=== PATIENT | female | born 1990 | race Caucasian/White ===

== ENCOUNTER 2016-11-02 10:09 | Inpatient (IN) | payer BC, MEDICAID ==
[2016-11-02 13:04] LABS: Hematocrit 34 % (35-47); Hemoglobin 11.2 g/dl (12.0-16.0); Mean Corpuscular HGB Conc 33 g/dl (31-36); Mean Corpuscular Hemoglobin 29 pg (27-31); Mean Corpuscular Volume 88 fL (80-97); Mean Platelet Volume 10 um3 (7.4-10.4); Red Blood Count 3.89 10^6/ul (4.0-5.4); Red Cell Distribution Width 14 % (10.5-15); White Blood Count 13.8 10^3/ul (3.5-10.8)
[2016-11-02] MEDS ORDERED: Oxytocin in LR* 20 UNITS/1,000 ML BAG IVPB ONE (16:46)
[2016-11-02] MEDS ORDERED: Misoprostol TAB* 200 MCG PR ONE (17:26)
[2016-11-02] MEDS ORDERED: Acetaminophen TAB* 325 MG PO PRN (17:26)
[2016-11-02] MEDS ORDERED: Glycerin ADULT SUPP PR PRN (17:26)
[2016-11-02] MEDS: Ibuprofen TAB* 600 MG PO PRN (18:29)
[2016-11-02] MEDS: Witch Hazel PAD* JAR TOPICAL PRN (18:30)
[2016-11-02] MEDS: Dibucaine 1% 28.35 GM TUBE PR PRN (18:30)
[2016-11-03] MEDS: Ibuprofen TAB* 600 MG PO PRN ×4 (02:32→20:36)
[2016-11-03 07:08] LABS: Hematocrit 28 % (35-47); Hemoglobin 9.4 g/dl (12.0-16.0); Mean Corpuscular HGB Conc 34 g/dl (31-36); Mean Corpuscular Hemoglobin 30 pg (27-31); Mean Corpuscular Volume 88 fL (80-97); Mean Platelet Volume 10 um3 (7.4-10.4); Red Blood Count 3.15 10^6/ul (4.0-5.4); Red Cell Distribution Width 14 % (10.5-15); White Blood Count 17.7 10^3/ul (3.5-10.8)
[2016-11-03] MEDS: Ferrous Gluconate TAB* 324 MG TAB PO SCH ×2 (08:45→20:36)
[2016-11-03] MEDS: Docusate CAP* 100 MG PO SCH ×4 (08:45→20:36)
[2016-11-04] MEDS: Ibuprofen TAB* 600 MG PO PRN ×2 (02:37→07:20)
[2016-11-04] MEDS: Witch Hazel PAD* JAR TOPICAL PRN (02:38)
[2016-11-04] MEDS: Dibucaine 1% 28.35 GM TUBE PR PRN (02:38)
[2016-11-04] MEDS: Docusate CAP* 100 MG PO SCH (07:21)
[2016-11-04] MEDS: Ferrous Gluconate TAB* 324 MG TAB PO SCH (07:21)
[2016-11-04 07:27] VITALS: BP 119/73
[2016-11-04] MEDS: Simethicone TAB* 80 MG TAB.CHEW PO SCH ×2 (07:31→08:15)
== END 2016-11-04 11:11 | disposition home or self-care (01) | DRG 560 ==
LOC: MCHOBOUT 10:09 → MCHOB 12:08
PROVIDERS: ADMIT Obstetrics & Gynecology; ATTEND Obstetrics & Gynecology
PROC: 10907ZC Drainage of Amniotic Fluid, Therapeutic from Products of Conception, Via Natural or Artificial Opening (ICD-10-PCS; principal; 2016-11-02)
PROC: 10E0XZZ Delivery of Products of Conception, External Approach (ICD-10-PCS; 2016-11-02)
PROC: 4A1HX4Z Monitoring of Products of Conception, Cardiac Electrical Activity, External Approach (ICD-10-PCS; 2016-11-02)
PROC: 0KQM0ZZ Repair Perineum Muscle, Open Approach (ICD-10-PCS; 2016-11-02)
DX: O48.0 Post-term pregnancy (principal); O90.81 Anemia of the puerperium; O34.211 Maternal care for low transverse scar from previous cesarean delivery; Z3A.40 40 weeks gestation of pregnancy; Z37.0 Single live birth; O70.1 Second degree perineal laceration during delivery; O69.1XX0 Labor and delivery complicated by cord around neck, with compression, not applicable or unspecified
CPT/HCPCS: 36415; 85025; 86850; 86900; 86901; A9270-GY

== ENCOUNTER 2018-04-02 19:15 | Emergency (ER) | payer OTHER ==
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
--- NOTE | 2018-04-02 20:21 | RAD ---
INDICATION: Right hand injury. TECHNIQUE: 3 views of the right hand were obtained. FINDINGS: There is soft tissue swelling present dorsal to the metacarpal bones. The bones are normal alignment. No fracture is seen. Joint spaces appear maintained. IMPRESSION: SOFT TISSUE SWELLING, NO FRACTURE IS SEEN.
[2018-04-02 20:40] VITALS: BP 112/72
== END 2018-04-02 20:39 | disposition home or self-care (01) ==
LOC: ED 19:15
DX: S60.221A Contusion of right hand, initial encounter (principal); W22.8XXA Striking against or struck by other objects, initial encounter; Y92.9 Unspecified place or not applicable; Z87.891 Personal history of nicotine dependence
CPT/HCPCS: 99282

== ENCOUNTER 2018-06-12 08:03 | Emergency (ER) | payer MEDICAID, OTHER ==
[2018-06-12 08:27] VITALS: BP 111/75
--- NOTE | 2018-06-12 08:45 | UC ---
Throat Pain/Nasal James HPI - HPI Summary HPI Summary: 28 yo female presents with right sinus pain and sore throat. States that for the last 2-3 days she has woken up and her right eye will be swollen with some mild redness. Also has some sinus congestion and post nasal drip with a sore throat. Has been taking sudafed with no relief. Denies fever, chills, cough, SOB , chest pain, rash. - History of Current Complaint Chief Complaint: UCRespiratory Stated Complaint: SINUS CONGESTION, AND EYE IRRITATION Time Seen by Provider: 06/12/18 08:45 Hx Obtained From: Patient Hx Last Menstrual Period: 2 weeks ago Onset/Duration: Gradual Onset Severity: Mild Pain Intensity: 4 Pain Scale Used: 0-10 Numeric - Allergies/Home Medications Allergies/Adverse Reactions: Allergies Allergy/AdvReac Type Severity Reaction Status Date / Time No Known Allergies Allergy Verified 06/12/18 08:27 Home Medications: Home Medications Guaifen/Phenyleph/Acetaminophn [Sudafed PE Jeyvyapd-Nufu-Pbesh] 1 each PO [History] Multivitamin [Multivitamins] 1 cap PO 06/12/18 [History] Naproxen Sodium [Aleve] 220 mg PO 06/12/18 [History] PMH/Surg Hx/FS Hx/Imm Hx - Additional Past Medical History Additional PMH: None - Surgical History Surgical History: Yes Surgery Procedure, Year, and Place: BRAIN SURGERY 2000 (Cerebellar TUMOR REMOVED ) - Family History Known Family History: Positive: Unknown - Social History Occupation: Employed Full-time Lives: With Family Alcohol Use: Occasionally Substance Use Type: None Smoking Status (MU): Former Smoker - Immunization History Most Recent Influenza Vaccination: 07/13/16 Most Recent Tetanus Shot: 07/28/16 Most Recent Pneumonia Vaccination: unsure Review of Systems Constitutional: Negative Skin: Negative Eyes: Negative ENT: Sinus Congestion, Sinus Pain/Tenderness Respiratory: Negative Cardiovascular: Negative Gastrointestinal: Negative Neurovascular: Negative Neurological: Negative Psychological: Negative All Other Systems Reviewed And Are Negative: Yes Physical Exam - Summary Physical Exam Summary: GENERAL: NAD. WDWN. No pain distress. SKIN: No rashes, sores, lesions, or open wounds. HEENT: Head: AT/NC Eyes: EOM intact. PERRLA. Conjunctiva clear without inflammation or discharge. Ears: Hearing grossly normal. TMs intact, no bulging, erythema, or edema. Nose: Nasal mucosa mildly swollen and erythematous with yellow discharge. TTP right maxillary sinus. Throat: Posterior oropharynx without exudates, erythema, or tonsillar enlargement. Uvula midline. NECK: Supple. Nontender. No lymphadenopathy. CHEST: CTAB. No r/r/w. No accessory muscle use. Breathing comfortably and in no distress. CV: RRR. Without m/r/g. Pulses intact. NEURO: Alert. PSYCH: Age appropriate behavior. Triage Information Reviewed: Yes Vital Signs: Initial Vital Signs Temp 97.4 F 06/12/18 08:22 Pulse 66 06/12/18 08:22 Resp 18 06/12/18 08:22 BP 111/75 06/12/18 08:22 Pulse Ox 100 06/12/18 08:22 Vital Signs Reviewed: Yes Throat Pain/Nasal Course/Dx - Course Course Of Treatment: Suspect maxillary sinusitis - Differential Dx/Diagnosis Provider Diagnoses: Sinusitis Discharge - Sign-Out/Discharge Documenting (check all that apply): Patient Departure All imaging exams completed and their final reports reviewed: No Studies - Discharge Plan Condition: Stable Disposition: HOME Prescriptions: Amoxicillin/Clavulanate TAB* [Augmentin TAB 875*] 875 mg PO BID #14 tab Patient Education Materials: Sinusitis (ED) Referrals: Shima Tobin PA [Primary Care Provider] - Additional Instructions: If you develop a fever, shortness of breath, chest pain, new or worsening symptoms - please call your PCP or go to the ED. - Billing Disposition and Condition Condition: STABLE Disposition: Home - Attestation Statements Provider Attestation: Per institutional requirements, I have reviewed the chart, however, I was not consulted specifically or made aware of this patient by the midlevel provider. I did not personally evaluate, interact with , or disposition this patient.
== END 2018-06-12 09:11 | disposition home or self-care (01) ==
LOC: UCEAST 08:03
CPT/HCPCS: 99212; G0463

== ENCOUNTER 2018-07-03 15:52 | Emergency (ER) | payer MEDICAID, OTHER ==
[2018-07-03] MEDS ORDERED: Ibuprofen TAB* 600 MG PO ONE (16:03)
[2018-07-03 16:04] VITALS: BP 118/72
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
[2018-07-03] MEDS ORDERED: Silver Sulfadiazine 1%* 20 GM TOPICAL ONE (17:03)
--- OUTSIDE RECORDS SUMMARY | 2018-07-03 21:41 | XMS REPORT ---
:1990 External Reference #:[id number] Author Organization [facility] Address [address] [place] [address] Phone [phone] Care Team Providers Name Role Phone HCP given Primary Care Physician Unavailable Payers Type Date Identification Numbers Payment Provider Subscriber Medicaid Effective: Policy Number: [id number] Medicaid Lorettamiguel Garibay 2018 PayID: [id number] [address] [place] [address] Problems Description No Information Family History Date Family Member(s) Problem(s) Comments General Stomach Cancer Great grandmother General Emotional Problems Throughout family: grandmother schizophrenic Mother Alcoholism Mother Asthma Mother Bleeding Tendancy Mother High Blood Pressure Mother Arthritis Mother Lupus Mother Colitis Siblings 4 Social History Type Date Description Comments Education Ged Education Highest Level Completed College Marital Status Single Lives With Children x 3 Diet Healthy, Well Balanced 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 No history of abuse ETOH Use Rarely consumes alcohol Recreational Drug Use Denies Drug Use Daily Caffeine Consumes on average 4 cups of coffee per day Enjoy Exercising Enjoys exercising Exercise Type/Frequency Exercises rarely Sun Exposure Uses sunscreen Seat Belt/Car Seat always uses seat belt Guns in Home No Smoke Alarms Yes smoke alarm Currently Active Patient is currently sexually active Age 1st [place] 17 Years Old # Partners in a Lifetime Partners 1-5 Allergies, Adverse Reactions, Alerts Date Description Reaction Status Severity Comments 02/28/2018 NKDA active Medications Medication Date Status Form Strength Qnty SIG Indications Ordering Provider Sumatriptan 06/19/ Active Tablets 25mg 8tabs 1 as needed G43.001 [place], Succinate 2017 migraine january, repeat after 2 M.D. hours if [place] not relieved Sprintec 28 06/19/ Active Tablets 0.25-35mg 30tab 1 pill per N94.6 Bisi [place] [place] each for M.D. contraception Magnesium 06/18/ Active Tablets 500mg 1 by mouth Unknown 2017 daily Feverfew 06/18/ Active Capsules 150mg 1 daily Unknown 2017 Multivitamin 02/27/ Active Tablets 1 by mouth Unknown Adult 2018 every day L-Theanine 02/27/ Active Capsules 1 qd Unknown 2017 Saman-E 06/17/ Hx Tablets 400mg 1 Tablet Daily Unknown 2017 - 2017 Medications Administered in Office Medication Date Status Form Strength Qnty SIG Indications Ordering Provider TB Intradermal Administered Injection Shima Test 018 Crista, P.A. Vital Signs Date Vital Result Comment 06/21/2018 BP Systolic 98 mmHg BP Diastolic 62 mmHg Weight 143.00 lb with shoes 06/19/2018 BP Systolic 110 mmHg BP Diastolic 76 mmHg Body Temperature 97.8 F Weight 143.00 lb 04/19/2018 BP Systolic 104 mmHg BP Diastolic 74 mmHg 03/21/2018 BP Systolic 100 mmHg BP Diastolic 68 mmHg Weight 146.00 lb with sandals 02/28/2018 BP Systolic 106 mmHg BP Diastolic 64 mmHg Height 63.75 inches 5'3.75" Weight 149.00 lb BMI (Body Mass Index) 25.8 kg/m2 Results Test Date Test Result H/L Range Note Xray 06/21/2018 X-Ray, Cervical <pending> Spine Min 4 Views, Ap, Lat, & Both Oblique Inr/Protime 03/21/2018 Inr 0.87 0.77-1.02 1 Laboratory test finding 03/21/2018 Anti Nuclear 0.2 U 1, 2 Antibody CBC Auto Diff 03/14/2018 White Blood Count 4.2 10^3/uL 3.5-10.8 Red Blood Count 4.18 10^6/uL 4.00-5.40 Hemoglobin 13.7 g/dL 12.0-16.0 Hematocrit 39 % 35-47 Mean Corpuscular Volume 94 fL 80-97 Mean Corpuscular Hemoglobin 33 pg High 27-31 Mean Corpuscular HGB Conc 35 g/dL 31-36 Red Cell Distribution Width 12 % 10.5-15 Platelet Count 227 10^3/uL 150-450 Mean Platelet Volume 7.9 um3 7.4-10.4 Abs Neutrophils 2.2 10^3/uL 1.5-7.7 Abs Lymphocytes 1.4 10^3/uL 1.0-4.8 Abs Monocytes 0.4 10^3/uL 0-0.8 Abs Eosinophils 0.2 10^3/uL 0-0.6 Abs Basophils 0 10^3/uL 0-0.2 Abs Nucleated RBC 0 10^3/uL Granulocyte % 51.9 % 38-83 Lymphocyte % 33.9 % 25-47 Monocyte % 9.4 % High 0-7 Eosinophil % 4.2 % 0-6 Basophil % 0.6 % 0-2 Nucleated Red Blood Cells % 0.1 Laboratory test finding 03/14/2018 TSH (Thyroid Stim Horm) 0.88 mcIU/mL 0.34-5.60 Comp Metabolic Panel 03/14/2018 Sodium 139 mmol/L 135-145 Potassium 4.6 mmol/L 3.5-5.0 Chloride 107 mmol/L 101-111 Co2 Carbon Dioxide 26 mmol/L 22-32 Anion Gap 6 mmol/L 2-11 Glucose 81 mg/dL 70-100 Blood Urea Nitrogen 12 mg/dL 6-24 Creatinine 0.89 mg/dL 0.51-0.95 BUN/Creatinine Ratio 13.5 8-20 Calcium 9.8 mg/dL 8.6-10.3 Total Protein 6.4 g/dL 6.4-8.9 Albumin 4.2 g/dL 3.2-5.2 Globulin 2.2 g/dL 2-4 Albumin/Globulin Ratio 1.9 1-3 Total Bilirubin 0.40 mg/dL 0.2-1.0 Alkaline Phosphatase 48 U/L 34-104 Alt 10 U/L 7-52 Ast 12 U/L Low 13-39 Egfr Non- 77.3 >60 Egfr 99.4 >60 3 1 PT NOT FASTING FOR VITK AND WILL HAVE VITK AND VITC DONE AT A LATER TIME No results of Vit K and Vit C in [facility] [place]. SL 2 REFERENCE VALUE <=1.0 (Negative) Test Performed by: [facility] - [address] [address] Because ethnic data is not always readily available, this report includes an eGFR for both -Americans and non- Americans. The National Kidney Disease Education Program (NKDEP) does not endorse the use of the MDRD equation for patients that are not between the ages of 18 and 70, are , have extremes of body size, muscle mass, or nutritional status, or are non- or non-. According to the National Kidney Foundation, irrespective of diagnosis, the stage of the disease is based on the level of kidney function: Stage Description GFR(mL/min/1.73 m(2)) 1 Kidney damage with normal or decreased GFR 90 2 Kidney damage with mild decrease in GFR 60-89 3 Moderate decrease in GFR 30-59 4 Severe decrease in GFR 15-29 5 Kidney failure <15 (or dialysis) Procedures Date CPT Code Description Status 06/21/2018 13405 Omt 3 To 4 Body Regions Involved Completed 06/21/2018 19633 X-Ray, C-Spine Complete, Min 4 Completed 09/26/2016 Mammogram Completed 09/26/2009 Colonoscopy Completed Encounters Type Date Location Provider CPT E/M Dx Office Visit 06/21/2018 3:45p Main Office Renny Bose D.O. 80287 M99.08 M99.00 M99.02 M99.01 S16.1xxS Z86.011 G43.001 M41.9 M41.9 G43.001 Office Visit 06/19/2018 3:20p Main Office Shima Tobin, P.A. 77524 G43.001 N94.6 R19.7 Z86.011 G43.821 Office Visit 04/19/2018 2:00p [place] [address] Z02.89 Office Visit 03/21/2018 8:40a Main Office Shima Tobin, P.A. 25049 F43.23 D69.2 Z02.89 Z11.1 Office Visit 02/28/2018 9:40a Main Office Shima Tobin, P.A. 43901 F43.23 R10.9 S16.1xxA M41.9 G43.009 Plan of Care No Information Available
--- OUTSIDE RECORDS SUMMARY | 2018-07-03 21:41 | XMS REPORT ---
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 contraception Magnesium [...] TB Intradermal Administered Injection Shima Test 018 [place], P.A. Vital Signs Date Vital Result Comment [...] Test Date Test Result H/L Range Note Inr/Protime 03/21/2018 Inr 0.87 0.77-1.02 1 Laboratory [...] of Vit K and Vit C in [facility] [place]. SL 2 REFERENCE VALUE <=1.0 (Negative) Test Performed by: [facility] - [address] [address] Because ethnic data is not always [...] dialysis) Procedures Date CPT Code Description Status 09/26/2016 Mammogram Completed 09/26/2009 Colonoscopy Completed Encounters Type Date Location Provider CPT E/M Dx Office Visit 06/19/2018 3:20p Main Office Shima Tobin, P.A. 19077 G43.001 N94.6 R19.7 Z86.011 G43.821 Office Visit 04/19/2018 2:00p [place] [address] Z02.89 Office Visit 03/21/2018 8:40a Main Office Shima Tobin, P.A. 33205 F43.23 D69.2 Z02.89 Z11.1 Office Visit 02/28/2018 9:40a Main Office Shima Tobin, P.A. 38719 F43.23 R10.9 S16.1xxA M41.9 G43.009 Plan of Care 06/19/2018 - Shima Tobin, P.A.G43.001 Migraine w/o aura, not intractable, with status migrainosusNew Medication:Sumatriptan Succinate 25 mgComments:pt previously referred to for consult of HAs in pt w PMH of benign brain tumorFollow up:return if not improving call Neurology!!!!N94.6 Dysmenorrhea, unspecifiedNew Medication:Sprintec 28 0.25-35 mg-mcgFollow up:Start on HvegdbS96.7 Diarrhea, unspecifiedComments:associated with menses as per pt, that thinks will taper off now into second day of period.discussedpossibly [facility] will help this as wellZ86.011 Personal history of benign neoplasm of the knbqdO58.821 Menstrual migraine, not intractable, with status migrainosus
--- OUTSIDE RECORDS SUMMARY | 2018-07-03 21:41 | XMS REPORT ---
:1990 External Reference #:[id number] Author Organization [facility] Address [address] [place] [address] Phone [phone] Care Team Providers Name Role Phone HCP given Primary Care Physician Unavailable Payers Type Date Identification Numbers Payment Provider Subscriber Medicaid Effective: Policy Number: [id number] Medicaid Lorettamiguel Garibay 2018 PayID: [id number] [address] [place] [address] Problems Description No Information Family History Date [...] x 3 Diet Healthy, Well Balanced Occupation Dentist Attendant Abuse No history of abuse ETOH Use [...] Patient is currently sexually active Age [address]st [place] 17 Years Old # Partners in a [...] 30tab 1 pill per N94.6 Bisi 2018 -[facility] [place] same each for M.D. contraception Magnesium 06/18/ Active Tablets 500mg 1 by mouth Unknown 2017 daily Feverfew 06/18/ Active Capsules 150mg 1 daily Unknown 2017 Saman-E 06/17/ Active Tablets 400mg 1 Tablet Daily Unknown 2017 Multivitamin 02/27/ Active Tablets 1 by mouth Unknown Adult 2018 every day L-Theanine 02/27/ Active Capsules 1 qd Unknown 2017 Medications Administered in Office Medication Date Status Form Strength Qnty SIG Indications Ordering Provider TB Intradermal Administered Injection Shima Test 018 Trimble, P.A. Vital Signs Date Vital Result Comment 06/19/2018 BP Systolic 110 mmHg BP Diastolic [...] of Vit K and Vit C in [facility] lab site. SL 2 REFERENCE VALUE <=1.0 (Negative) Test Performed by: [facility] - [address] [address] 3 Because ethnic data is not always [...] 06/19/2018 3:20p Main Office Shima Tobin, P.A. 15622 G43.001 N94.6 R19.7 Office Visit 04/19/2018 2:00p [place] [address] Z02.89 Office Visit 03/21/2018 8:40a Main Office Shima Tobin, P.A. 29366 F43.23 D69.2 Z02.89 Z11.1 Office Visit 02/28/2018 9:40a Main Office Shima Tobin, P.A. 87891 F43.23 R10.9 S16.1xxA M41.9 G43.009 Plan of Care Future Appointment(s):06/21/2018 3:45 pm - Renny Bose D.O. at Main Ffzjff0306/19/2018 - Shima Tobin, P.A.G43.001 Migraine w/o aura, not intractable , with status migrainosusNew Medication:Sumatriptan Succinate 25 mgComments:pt previously referred to for consult of HAs in pt w PMH of benign brain tumorFollow up:return if not improving call Neurology!!!!N94.6 Dysmenorrhea, unspecifiedNew Medication:Sprintec 28 0.25-35 mg-mcgFollow up:Start on XamszhV74.7 Diarrhea, unspecifiedComments:associated with menses as per pt, that thinks will taper off now into second day of period.discussedpossibly theOCP will help this as well
== END 2018-07-03 18:00 | disposition home or self-care (01) ==
LOC: UCEAST 15:52
DX: T23.202A Burn of second degree of left hand, unspecified site, initial encounter (principal); T23.272A Burn of second degree of left wrist, initial encounter; T24.202A Burn of second degree of unspecified site of left lower limb, except ankle and foot, initial encounter; T24.201A Burn of second degree of unspecified site of right lower limb, except ankle and foot, initial encounter; T31.0 Burns involving less than 10% of body surface; X10.2XXA Contact with fats and cooking oils, initial encounter; Y93.G3 Activity, cooking and baking; Y92.000 Kitchen of unspecified non-institutional (private) residence as the place of occurrence of the external cause; Z87.891 Personal history of nicotine dependence
CPT/HCPCS: 16020; 99212; A9270-GY; G0463

== ENCOUNTER 2019-10-22 12:55 | Emergency (ER) | payer OTHER ==
--- OUTSIDE RECORDS SUMMARY | 2019-10-22 13:00 | XMS REPORT | Continuity of Care Document ---
:1990 External Reference #:[id number] Author Name Tung Cole N.P. 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 Problems Description No Information Available Social History Type Date Description Comments Sex Unknown Tobacco Use Start: Unknown Never Smoked Cigarettes Smoking Status Reviewed: 08/28/19 Never Smoked Cigarettes ETOH Use Denies alcohol use mild previous alcohol intake Tobacco Use Start: Unknown Patient has never smoked Recreational Drug Use Never Used Drugs Exercise Type/Frequency Does not exercise Allergies, Adverse Reactions, Alerts Description No Known Drug Allergies Medications Active Medications SIG Qnty Indications Ordering Provider Date Citalopram Hydrobromide Shima Tobin PA 20mg Tablets History Medications Sumatriptan take one tablet 9tabs Karol Rivas, 05/01/2019 - Succinate at first sign of PA 08/27/2019 25mg headache Tablets Rizatriptan dissolve one 9tabs G43.009 Karol Rivas, 04/24/2019 - Benzoate tablet on tongue PA 08/27/2019 10mg at first sign of Tablets Dispers migraine may repeat in 2 hours if necessary Immunizations Description No Information Available Vital Signs Date Vital Result Comment 08/28/2019 9:43am Height 63.5 inches 5'3.50" Weight 141.00 lb Heart Rate 81 /min BP Systolic 110 mmHg BP Diastolic 78 mmHg BMI (Body Mass Index) 24.6 kg/m2 04/24/2019 4:06pm Height 63.5 inches 5'3.50" Weight 138.00 lb Heart Rate 67 /min BP Systolic 122 mmHg BP Diastolic 78 mmHg O2 % BldC Oximetry 98 % BMI (Body Mass Index) 24.1 kg/m2 Results Test Acquired Date Facility Test Result H/L Range Note Laboratory test 03/31/2019 [facility] Vitamin B12 229 pg/mL Normal 180-[address] [place] [address] [phone] CBC Auto Diff 03/31/2019 [facility] White Blood 3.9 10^3/uL Normal 3.5-10.[address] [place] [address] [phone] Red Blood Count 4.39 10^6/uL Normal 3.70-4.87 Hemoglobin 13.9 g/dL Normal 12.0-16.0 Hematocrit 41 % Normal 35-47 Mean Corpuscular Volume 93 fL Normal 80-97 Mean Corpuscular Hemoglobin 32 pg High 27-31 Mean Corpuscular HGB Conc 34 g/dL Normal 31-36 Red Cell Distribution Width 13 % Normal 10-15 Platelet Count 239 10^3/uL Normal 150-450 Mean Platelet Volume 8.2 fL Normal 7.4-10.4 Abs Neutrophils 1.6 10^3/uL Normal 1.5-7.7 Abs Lymphocytes 1.5 10^3/uL Normal 1.0-4.8 Abs Monocytes 0.5 10^3/uL Normal 0-0.8 Abs Eosinophils 0.2 10^3/uL Normal 0-0.6 Abs Basophils 0.1 10^3/uL Normal 0-0.2 Abs Nucleated RBC 0.0 10^3/uL Granulocyte % 42.2 % Lymphocyte % 38.2 % Monocyte % 11.7 % Eosinophil % 5.5 % Basophil % 2.4 % Nucleated Red Blood Cells % 0.1 Laboratory test 03/31/2019 [facility] Vitamin D 18.8 ng/mL Low 20-[address]) [place] [address] [phone] CRP High Sensitivity 0.35 mg/L <2.00 Iron (Fe) 99 g/dL Normal 50-212 Ferritin 13.6 ng/mL Normal 11-307 Comp Metabolic 03/31/2019 [facility] Sodium 139 mmol/L Normal 135-[address] [place] [address] [phone] Potassium 4.4 mmol/L Normal 3.5-5.0 Chloride 110 mmol/L Normal 101-111 Co2 Carbon Dioxide 25 mmol/L Normal 22-32 Anion Gap 4 mmol/L Normal 2-11 Glucose 87 mg/dL Normal 70-100 Blood Urea Nitrogen 7 mg/dL Normal 6-24 Creatinine 0.78 mg/dL Normal 0.51-0.95 BUN/Creatinine Ratio 9.0 Normal 8-20 Calcium 9.5 mg/dL Normal 8.6-10.3 Total Protein 6.3 g/dL Low 6.4-8.9 Albumin 4.3 g/dL Normal 3.2-5.2 Globulin 2.0 g/dL Normal 2-4 Albumin/Globulin Ratio 2.2 Normal 1-3 Total Bilirubin 0.50 mg/dL Normal 0.2-1.0 Alkaline Phosphatase 34 U/L Normal 34-104 Alt 19 U/L Normal 7-52 Ast 18 U/L Normal 13-39 Egfr Non- 88.6 >60 Egfr 107.2 >60 3 1 Normal Range 180 to 914 Indeterminate Range 145 to 180 Deficient Range <145 2 Total 25-Hydroxyvitamin D2 and D3 (25-OH-VitD) <10 ng/mL (severe deficiency) 10-19 ng/mL (mild to moderate deficiency) 20-50 ng/mL (optimum levels) 51-80 ng/mL (increased risk of hypercalciuria) >80 ng/mL (toxicity possible) 3 Because ethnic data is not always [...] 5 Kidney failure <15 (or dialysis) Procedures Description No Information Available Medical Devices Description No Information Available Encounters Type Date Location Provider Dx Diagnosis Office Visit 04/24/2019 [facility] Karol G43.009 Migraine w/o aura, 4:00p [facility] ROSEANNE Rivas not intractable, w/o status migrainosus R53.83 Other fatigue K58.0 Irritable bowel syndrome with diarrhea F43.20 Adjustment disorder, unspecified E55.9 Vitamin D deficiency, unspecified Office Visit 03/08/2019 [facility] Karol Evelyn, G43.009 Migraine w/o aura, 8:30a [facility] not intractable, Clinic of w/o status Jd Edwards Consultant migrainosus R53.83 Other fatigue K58.0 Irritable bowel syndrome with diarrhea F43.20 Adjustment disorder, unspecified Assessments Date Code Description Provider 08/28/2019 G43.009 Migraine without aura, not intractable, Tung Cole, N.P. without status migra 08/28/2019 R53.83 Other fatigue Tung Cole N.P. 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20 Adjustment disorder, unspecified Karol Rivas PA Plan of Treatment Future Appointment(s):10/11/2019 9:00 am - Tung Cole N.P. at [facility]09/10/2019 4:00 pm - ROSEANNE Owen at [facility]08/28/2019 - Tung Cole, N.P.G43.009 Migraine without aura, not intractable, without status migraNew Xrays:Mra Head W/O, Ordered: 12/12MRI Brain W/Wo, Ordered: 08/28/19Follow up:6-8 weeksRecommendations: Riboflavin (vitamin b-2) 400mg daily Headache mlpukwmhM02.83 Other jlobdgvL32.2 Neoplasm of uncertain behavior of brain, unspecifiedRecommendations :[facility] Functional Status Description No Information Available Mental Status Description No Information Available Referrals Description No Information Available
[2019-10-22 13:08] VITALS: BP 125/83
--- NOTE | 2019-10-22 13:11 | UC ---
FLU HPI - HPI Summary HPI Summary: 29 yo female presents with flu-like symptoms. She tells me that she has children and co-workers with the flu. For the last 4 days she has felt chills, dry cough, sinus congestion, fatigue, and some nausea. She has been taking tylenol OTC with little relief. Today she feels improved. 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 Denies rash, SOB, abdominal pain, vomiting, diarrhea. - History of Current Complaint Chief Complaint: UCGeneralIllness Stated Complaint: FLU SYMPTOMS Time Seen by Provider: 10/22/19 13:10 Hx Obtained From: Patient Hx Last Menstrual Period: 09/26/19 Onset/Duration: Sudden Onset Severity Currently: Moderate Severity Initially: Moderate Pain Intensity: 7 Pain Scale Used: 0-10 Numeric - Allergy/Home Medications Allergies/Adverse Reactions: Allergies Allergy/AdvReac Type Severity Reaction Status Date / Time No Known Allergies Allergy Verified 10/22/19 13:08 Home Medications: Home Medications Acetaminophen [Mapap] 1,000 mg PO ONCE PRN 10/22/19 [History Confirmed 10/22/19] Citalopram Hydrobromide [Citalopram HBr] 1 tab PO DAILY 10/22/19 [History Confirmed 10/22/19] PMH/Surg Hx/FS Hx/Imm Hx Psychological History: Anxiety, Depression - Surgical History Surgical History: Yes Surgery Procedure, Year, and Place: C SEC 2007. BRAIN SURGERY 2000 (Cerebellar TUMOR REMOVED) - Family History Known Family History: Positive: Hypertension - Social History Occupation: Employed Full-time Lives: With Family Alcohol Use: None Substance Use Type: None Smoking Status (MU): Former Smoker - Immunization History Most Recent Influenza Vaccination: 07/13/16 Most Recent Tetanus Shot: 07/28/16 Most Recent Pneumonia Vaccination: unsure Review of Systems All Other Systems Reviewed And Are Negative: No Constitutional: Positive: Fatigue, Other - Body aches Skin: Positive: Negative Eyes: Positive: Negative ENT: Positive: Sore Throat, Nasal Discharge Respiratory: Positive: Cough Cardiovascular: Positive: Negative Gastrointestinal: Positive: Negative Neurological: Positive: Negative Psychological: Positive: Negative Physical Exam - Summary Physical Exam Summary: GENERAL: NAD. WDWN. No pain distress. SKIN: No rashes, sores, lesions, or open wounds. HEENT: Head: AT/NC Eyes: EOM intact. Conjunctiva clear without inflammation or discharge. Ears: Hearing grossly normal. TMs intact, no bulging, erythema, or edema. Nose: Nasal mucosa pink and moist. NTTP maxillary and frontal sinus. Throat: Posterior oropharynx without exudates, erythema, or tonsillar enlargement. Uvula midline. NECK: Supple. Nontender. No lymphadenopathy. CHEST: CTAB. No r/r/w. No accessory muscle use. Breathing comfortably and in no distress. CV: RRR. Pulses intact. Cap refill <2seconds NEURO: Alert. PSYCH: Age appropriate behavior. Triage Information Reviewed: Yes Vital Signs: Initial Vital Signs Temp 98.4 F 10/22/19 13:03 Pulse 87 10/22/19 13:03 Resp 18 10/22/19 13:03 BP 125/83 10/22/19 13:03 Pulse Ox 100 10/22/19 13:03 Laboratory Tests 10/22/19 13:21 Influenza B (Rapid) Positive A Vital Signs Reviewed: Yes Flu Course/Dx - Course Course Of Treatment: POC flu positive. Advised supportive care - Differential Dx/Diagnosis Provider Diagnosis: Influenza Discharge ED - Sign-Out/Discharge Documenting (check all that apply): Patient Departure All imaging exams completed and their final reports reviewed: No Studies - Discharge Plan Condition: Stable Disposition: HOME Patient Education Materials: Influenza (ED) Forms: *Work Release Referrals: Shima Tobin PA [Primary Care Provider] - Additional Instructions: Most people with the flu recover within one to two weeks without treatment. However, serious complications of the flu can occur. Go to the ER immediately if you: -- You feel short of breath or have trouble breathing -- You have pain or pressure in your chest or stomach -- You have signs of being dehydrated, such as dizziness when standing or not passing urine -- You feel confused -- You cannot stop vomiting or you cannot drink enough fluids There are several groups of people who are at increased risk for flu complications. These include women, young children (<5 years of age and especially <2 years of age), people older than 65 years of age, and people with certain diseases such as chronic lung disease (such as asthma), heart disease, diabetes, immunosuppressing conditions (such as HIV infection or transplantation), and some other diseases. Treat symptoms Treating the symptoms of influenza can help you to feel better but will not make the flu go away faster. -- Rest until the flu is fully resolved, especially if the illness has been severe. -- Fluids Drink enough fluids so that you do not become dehydrated. One way to ceramic coater if you are drinking enough is to look at the color of your urine. Normally, urine should be light yellow to nearly colorless. If you are drinking enough, you should pass urine every three to five hours. -- Acetaminophen (sample brand name: Tylenol) can relieve fever, headache, and muscle aches. Aspirin and medicines that include aspirin (eg, bismuth subsalicylate [sample brand name: Pepto-Bismol]) are not recommended for children under 18 because aspirin can lead to a serious disease called Vignesh syndrome. -- Cough medicines are not usually helpful; cough usually resolves without treatment. We do not recommend cough or cold medicine for children under age 6 years. Antiviral treatment Antiviral medicines can be used to treat or prevent influenza. When used as a treatment, the medicine does not eliminate flu symptoms, although it can reduce the severity and duration of symptoms by about one day. Not every person with influenza needs an antiviral medicine, but some people do; the decision is based upon several factors. If you are severely ill and/or have risk factors for developing complications of influenza, you will need an antiviral agent. People who are only mildly ill and have no risk factors for complications usually do not need to be treated with antiviral medication. - Billing Disposition and Condition Condition: STABLE Disposition: Home
[2019-10-22 13:24] LABS: Influenza B Molecular POSITIVE (Negative)
== END 2019-10-22 13:37 | disposition home or self-care (01) ==
LOC: UCEAST 12:55
DX: J11.1 Influenza due to unidentified influenza virus with other respiratory manifestations (principal); F41.9 Anxiety disorder, unspecified; F32.9 Major depressive disorder, single episode, unspecified; Z79.899 Other long term (current) drug therapy
CPT/HCPCS: 99211; G0463